=== PATIENT | female | born 1990 | race Caucasian/White ===

== ENCOUNTER → 2019-04-18 | Outpatient (CLI) | payer OTHER ==
--- NOTE | 2019-04-18 20:08 | ECHO ---
DATE OF PROCEDURE: 04/18/2019 REFERRING PHYSICIAN: Dr. Fredrick Riley INDICATION: Dyspnea on exertion, preoperative cardiovascular exam. Height 175 cm, weight 122 kg. DIMENSIONS: IVS: 1.0 LV: 4.5 LVPW: 1.1 LA: 4.1 Aorta: 3.0 IVC: 2.0 Mitral E wave velocity: 83 A wave: 40 E prime septal: 10.7 E prime lateral: 24 FINDINGS: The study is of fair technical quality corresponding to patient's body habitus. Left ventricle is of normal size and has normal systolic function, I estimate left ventricular ejection fraction (LVEF) 65-70%. Right ventricle was relatively poorly visualized but appears to have normal size and systolic function. Left atrium is mildly enlarged. Right atrium is probably normal size. Aortic valve is minimally sclerotic but has normal mobility, but this is based on poor views. Mitral, tricuspid valve appear normal. Pulmonic valve was not well seen. No pericardial effusion is noted. Inferior vena cava is on upper limits of normal size but collapses appropriately with respiration. Aortic root is normal. Aortic arch and abdominal aorta also appear normal. Doppler interrogation of aortic valve reveals no significant stenosis or insufficiency. There is also no significant mitral and tricuspid valvular disease. Trace pulmonic insufficiency is seen. Mitral inflow pattern and tissue Doppler imaging of mitral annulus revealed normal diastolic function. CONCLUSIONS: 1. Study is of fair technical quality. 2. Normal left ventricular (LV) size and systolic function, normal diastolic function. 3. No significant valvular disease. 4. Normal or mildly elevated central venous pressure. 5. Unable to estimate pulmonary artery pressure but no signs to suggest pulmonary hypertension. COMMENT: Subacute bacterial endocarditis (SBE) prophylaxis is not recommended.
== END ==
LOC: M CARPUL 08:38
DX: R06.09 Other forms of dyspnea (principal); Z01.810 Encounter for preprocedural cardiovascular examination

== ENCOUNTER → 2020-04-17 | Outpatient (CLI) | payer OTHER ==
[2020-04-17 12:45] LABS: HEMOGLOBIN 13.2 g/dl (12.0-15.5); MEAN CORPUSCULAR HEMOGLOBIN 28.9 pg (27.0-33.0); MEAN CORPUSCULAR VOLUME 87.5 fl (80.0-96.0); PLATELET COUNT, AUTOMATED 275 10^3/uL (150-450); RED BLOOD COUNT 4.57 10^6/uL (4.00-5.40); WHITE BLOOD COUNT 8.9 10^3/uL (4.0-10.0)
[2020-04-17 15:36] LABS: ALBUMIN 3.8 GM/DL (3.2-5.2); ALT/SGPT 22 U/L (12-78); BILIRUBIN,TOTAL 0.4 MG/DL (0.2-1.0); BLOOD UREA NITROGEN 8 MG/DL (7-18); CALCIUM LEVEL 9.2 MG/DL (8.5-10.1); CARBON DIOXIDE LEVEL 30 MEQ/L (21-32); CHLORIDE LEVEL 105 MEQ/L (98-107); CREATININE FOR GFR 0.82 MG/DL (0.55-1.30); FERRITIN 30 NG/ML (8-252); GLOMERULAR FILTRATION RATE > 60.0 (>60); GLUCOSE, FASTING 78 MG/DL (70-100); IRON (FE) 77 UG/DL (50-170); PERCENT SATURATION 24.8 % (13.2-45.0); POTASSIUM SERUM 3.9 MEQ/L (3.5-5.1); SODIUM LEVEL 139 MEQ/L (136-145); TOTAL IRON BINDING CAPACITY 310 UG/DL (250-450); TOTAL PROTEIN 6.7 GM/DL (6.4-8.2)
[2020-04-17 18:11] LABS: FOLATE 12.8 NG/ML; TOTAL 25(OH) VITAMIN D 25.1 NG/ML (30.0-100.0); VITAMIN B12 LEVEL 832 PG/ML
[2020-04-23 00:07] LABS: VITAMIN A, RETINOL LEVEL 40.9 ug/dL (18.9-57.3); VITAMIN B1 LEVEL WHOLE BLOOD 140.4 nmol/L (66.5-200.0)
== END ==
LOC: M WUC 09:08
DX: K90.89 Other intestinal malabsorption (principal); Z98.84 Bariatric surgery status; E55.9 Vitamin D deficiency, unspecified

== ENCOUNTER → 2020-04-17 | Outpatient (CLI) | payer OTHER ==
[2020-04-19 23:19] LABS: D001-IgE D pteronyssinus <0.10 kU/L (Class 0); E001-IgE Cat Epith/Dander < 0.10 kU/L (Class 0); E003-IGE HORSE EPITHELIA/DAND <0.10 kU/L (Class 0); E004-IGE COW DANDER <0.10 kU/L (Class 0); E005-IgE Dog Dander < 0.10 kU/L (Class 0); F002-IgE Milk < 0.10 kU/L (Class 0); F004-IgE Wheat < 0.10 kU/L (Class 0); F013-IgE Peanut < 0.10 kU/L (Class 0); F014-IgE Soybean < 0.10 kU/L (Class 0); F026-IgE Pork < 0.10 kU/L (Class 0); F027-IgE Beef < 0.10 kU/L (Class 0); F077-IGE LACTOGLOBULIN, BETA <0.10 kU/L (Class 0); F078-IGE CASEIN <0.10 kU/L (Class 0); F081-IGE CHEDDAR CHEESE <0.10 kU/L (Class 0); F082-IGE CHEESE MOLD <0.10 kU/L (Class 0); F245-IgE Egg, Whole < 0.10 kU/L (Class 0); FX02-IgE Food Mix (Sea Foods) Negative (.); G002-IgE Bermuda Grass < 0.10 kU/L (Class 0); G008-IgE Kentucky Bluegrass < 0.10 kU/L (Class 0); M001-IgE Penicillium chrysogen < 0.10 kU/L (Class 0); M002 IgE Cladosporium herbaru < 0.10 kU/L (Class 0); M003 IgE Aspergillus fumigatu < 0.10 kU/L (Class 0); M006-IgE Alternaria alternata < 0.10 kU/L (Class 0); T001-IgE Maple/Box Elder < 0.10 kU/L (Class 0); T003-IgE Common Silver Birch < 0.10 kU/L (Class 0); T006-IgE Cedar, Mountain < 0.10 kU/L (Class 0); T007-IgE Oak, White < 0.10 kU/L (Class 0); T008-IgE Elm, American < 0.10 kU/L (Class 0); T015-IgE Ash, White < 0.10 kU/L (Class 0); T041-IgE Hickory, White < 0.10 kU/L (Class 0); T070-IgE White Mulberry < 0.10 kU/L (Class 0); W001-IgE Ragweed, Short < 0.10 kU/L (Class 0); W009-IgE Plantain, English < 0.10 kU/L (Class 0); W014-IgE Pigweed, Rough < 0.10 kU/L (Class 0); W018-IgE Sheep Sorrel < 0.10 kU/L (Class 0)
[2020-04-20 12:07] LABS: F002-IGE MILK <0.10 kU/L (Class 0)
== END ==
LOC: M WUC 08:58
PROVIDERS: ATTEND Nurse Practitioner Family
DX: J30.2 Other seasonal allergic rhinitis (principal); H10.45 Other chronic allergic conjunctivitis; L29.9 Pruritus, unspecified; R05 Cough

== ENCOUNTER 2020-06-29 22:02 | Emergency (ER) | payer OTHER ==
[~2020-06-29] VITALS: Ht 175.3 cm; Wt 93.0 kg
[2020-06-29] MEDS ORDERED: PANT40TA29 PO (22:10)
[2020-06-29] MEDS ORDERED: CEFD1CAP8 PO (22:17)
[2020-06-30 00:48] LABS: BASO % 0.3 % (0.0-1.0); HEMATOCRIT 40.8 % (36.0-47.0); HEMOGLOBIN 13.5 g/dl (12.0-15.5); LYMPH # 1.2 10^3/uL (1.5-5.0); MEAN CORPUSCULAR HEMOGLOBIN 28.4 pg (27.0-33.0); MEAN CORPUSCULAR HGB CONC 33.1 g/dl (32.0-36.5); MEAN CORPUSCULAR VOLUME 85.9 fl (80.0-96.0); MONO # 0.8 10^3/uL (0.0-0.8); MONO % 7.2 % (0.0-5.0); NEUTROPHILS % 80.8 % (36.0-66.0); PLATELET COUNT, AUTOMATED 276 10^3/uL (150-450); RED BLOOD COUNT 4.75 10^6/uL (4.00-5.40); WHITE BLOOD COUNT 11.1 10^3/uL (4.0-10.0)
[2020-06-30] MEDS ORDERED: KETOROLAC 30 MG/ML 1ML VIAL IV ONE (01:00)
[2020-06-30] MEDS ORDERED: NS 1,000 ML IV ONE (01:00)
[2020-06-30 01:01] LABS: HCG, SERUM QUALITATIVE NEGATIVE (NEGATIVE)
[2020-06-30 01:17] LABS: ALBUMIN 3.9 GM/DL (3.2-5.2); ALT/SGPT 841 U/L (12-78); BILIRUBIN,DIRECT 1.1 MG/DL (0.0-0.2); BILIRUBIN,TOTAL 1.6 MG/DL (0.2-1.0); BLOOD UREA NITROGEN 12 MG/DL (7-18); CALCIUM LEVEL 8.9 MG/DL (8.5-10.1); CARBON DIOXIDE LEVEL 27 MEQ/L (21-32); CHLORIDE LEVEL 107 MEQ/L (98-107); CREATININE FOR GFR 0.71 MG/DL (0.55-1.30); GLOMERULAR FILTRATION RATE > 60.0 (>60); GLUCOSE, FASTING 111 MG/DL (70-100); LIPASE 219 U/L (73-393); POTASSIUM SERUM 3.8 MEQ/L (3.5-5.1); SODIUM LEVEL 140 MEQ/L (136-145); TOTAL PROTEIN 7.3 GM/DL (6.4-8.2)
--- NOTE | 2020-06-30 02:00 | REPVR ---
PROCEDURE INFORMATION: Exam: US Abdomen, Limited; Right Upper Quadrant Exam date and time: 06/30/2020 1:47 AM Age: 29 years old Clinical indication: Abdominal pain; Epigastric; Additional info: Biliary eval TECHNIQUE: Imaging protocol: US abdomen. Real time ultrasound with image documentation. Limited exam focused on the right upper quadrant. COMPARISON: No relevant prior studies available. FINDINGS: Liver: The liver demonstrates no focal defects. Gallbladder: The gallbladder demonstrates shadowing stones and sludge. There is no wall thickening measuring 3 mm and there is a negative sono Montelongo's sign. Common bile duct: The CBD measures 6 mm. Pancreas: The pancreas is normal. Right kidney: The right kidney is normal measuring 12.3 cm with no hydronephrosis. There is a small cyst measuring 9 x 9 x 12 mm. IMPRESSION: 1. Cholelithiasis with stones and sludge in the gallbladder. There is no wall thickening and there is a negative sono Montelongo's sign. 2. Otherwise negative right upper quadrant sonogram. Electronically signed by: Quang Peñaloza On 06/30/2020 02:00:32 AM
[2020-06-30] MEDS ORDERED: ISOVUE-370 76% 100ML VIAL As Ordered ONE (02:28)
--- NOTE | 2020-06-30 02:56 | REPVR ---
PROCEDURE INFORMATION: Exam: CT Abdomen And Pelvis With Contrast Exam date and time: 06/30/2020 2:30 AM Age: 29 years old Clinical indication: Abdominal pain; Localized; Right upper quadrant (ruq); Additional info: Biliary eval TECHNIQUE: Imaging protocol: Computed tomography of the abdomen and pelvis with intravenous contrast. Radiation optimization: All CT scans at this facility use at least one of these dose optimization techniques: automated exposure control; mA and/or kV adjustment per patient size (includes targeted exams where dose is matched to clinical indication); or iterative reconstruction. Contrast material: ISO; Contrast volume: 100 ml; Contrast route: INTRAVENOUS (IV); COMPARISON: US Abdomen 06/30/2020 1:47 AM FINDINGS: Lungs: Minimal dependent atelectasis. Liver: Normal. No mass. Gallbladder and bile ducts: Slight pericholecystic induration with pericholecystic fluid or wall edema. There is borderline distention of the gallbladder measuring 4.5 cm in diameter. Pancreas: Normal. No ductal dilation. Spleen: Normal. No splenomegaly. Adrenals: Normal. No mass. Kidneys and ureters: There is a right renal cyst measuring 10 mm consistent with simple or Bosniak 1 cyst. No follow-up imaging is recommended. Stomach and bowel: Status post gastric sleeve creation. Appendix: There are no changes of appendicitis. A normal appendix is not seen. Intraperitoneal space: Minimal free fluid in the cul-de-sac which is top normal for physiologic origin. Vasculature: Unremarkable. No abdominal aortic aneurysm. Lymph nodes: Unremarkable. No enlarged lymph nodes. Bladder: Unremarkable as visualized. Reproductive: Left ovarian functional cyst measuring 16 mm. Bones/joints: Unremarkable. No acute fracture. Soft tissues: Unremarkable. IMPRESSION: 1. Borderline distention of the gallbladder with pericholecystic fluid or wall edema and slight surrounding induration consistent with cholecystitis. 2. Status post gastric sleeve. 3. Minimal free fluid in the cul-de-sac which is top normal for physiologic origin and may be reactive and related to cholecystitis. COMMENTS: Consistent with the [employer]'s Incidental Findings Committee white paper (J Am Ru Radiol 2018): Any incidental renal lesion less than 1.0 cm or classified as too small to characterize, or any incidental cystic renal lesion characterized as simple-appearing, is likely benign. No follow-up imaging is recommended for these lesions per consensus recommendations based on imaging criteria. Electronically signed by: Quang Peñaloza On 06/30/2020 02:56:20 AM
[2020-06-30 08:51] LABS: ALBUMIN 3.3 GM/DL (3.2-5.2); BILIRUBIN,DIRECT 1.8 MG/DL (0.0-0.2); BILIRUBIN,TOTAL 2.3 MG/DL (0.2-1.0); TOTAL PROTEIN 6.2 GM/DL (6.4-8.2)
[2020-06-30] MEDS ORDERED: NS 1,000 ML IV SCH (10:15)
[2020-06-30] MEDS ORDERED: PIPERACILLIN/TAZOBACTAM SOD 3.375 GM in D5W MINI-BAG PLUS 50 ML IV ONE (10:15)
[2020-06-30 11:51] VITALS: BP 117/73
[2020-06-30] MEDS ORDERED: ONDANSETRON 4MG/2ML VIAL IV ONE (12:00)
[2020-06-30] MEDS ORDERED: MORPHINE 4 MG/ML 1ML VIAL/SYRINGE (J2270) IV ONE (12:00)
[2020-06-30] MEDS ORDERED: MORPHINE 4 MG/ML 1ML VIAL/SYRINGE (J2270) As Ordered ONE (12:01)
[2020-06-30] MEDS ORDERED: ONDANSETRON 4MG/2ML VIAL As Ordered ONE (12:02)
== END 2020-06-30 12:10 | disposition short-term general hospital (02) ==
LOC: M ED 22:02
DX: K80.42 Calculus of bile duct with acute cholecystitis without obstruction (principal); N28.1 Cyst of kidney, acquired; K21.9 Gastro-esophageal reflux disease without esophagitis; M32.9 Systemic lupus erythematosus, unspecified; Z98.84 Bariatric surgery status
CPT/HCPCS: 74177; 76705; 80048; 80076; 81001; 83690; 84703; 85025; 87086; 96361; 96365; 96375; 99284; J1885; J2270; J2405; J2543; Q9967

== ENCOUNTER → 2020-07-21 | Outpatient (CLI) | payer OTHER ==
[~2020-07-21] MED LIST: CEFD1CAP8 PO; PANT40TA29 PO
[2020-07-21 15:37] LABS: ALBUMIN 3.8 GM/DL (3.2-5.2); ALT/SGPT 35 U/L (12-78); BILIRUBIN,TOTAL 0.5 MG/DL (0.2-1.0); BLOOD UREA NITROGEN 13 MG/DL (7-18); CALCIUM LEVEL 9.5 MG/DL (8.5-10.1); CARBON DIOXIDE LEVEL 31 MEQ/L (21-32); CHLORIDE LEVEL 106 MEQ/L (98-107); CREATININE FOR GFR 0.68 MG/DL (0.55-1.30); FERRITIN 58 NG/ML (8-252); GLOMERULAR FILTRATION RATE > 60.0 (>60); GLUCOSE, FASTING 79 MG/DL (70-100); HEMATOCRIT 41.6 % (36.0-47.0); HEMOGLOBIN 13.2 g/dl (12.0-15.5); IRON (FE) 100 UG/DL (50-170); MAGNESIUM LEVEL 2.1 MG/DL (1.8-2.4); MEAN CORPUSCULAR HEMOGLOBIN 28.2 pg (27.0-33.0); MEAN CORPUSCULAR HGB CONC 31.7 g/dl (32.0-36.5); MEAN CORPUSCULAR VOLUME 88.9 fl (80.0-96.0); PERCENT SATURATION 31.3 % (13.2-45.0); PLATELET COUNT, AUTOMATED 326 10^3/uL (150-450); POTASSIUM SERUM 3.8 MEQ/L (3.5-5.1); RED BLOOD COUNT 4.68 10^6/uL (4.00-5.40); SODIUM LEVEL 139 MEQ/L (136-145); TOTAL IRON BINDING CAPACITY 320 UG/DL (250-450); TOTAL PROTEIN 7.1 GM/DL (6.4-8.2); WHITE BLOOD COUNT 9.1 10^3/uL (4.0-10.0)
[2020-07-23 10:23] LABS: TOTAL 25(OH) VITAMIN D 25.2 NG/ML (30.0-100.0); VITAMIN B12 LEVEL 542 PG/ML (247-911)
[2020-07-28 23:07] LABS: VITAMIN A, RETINOL LEVEL 49.6 ug/dL (18.9-57.3); VITAMIN B1 LEVEL WHOLE BLOOD 116.3 nmol/L (66.5-200.0)
== END ==
LOC: M WUC 08:21
PROVIDERS: ATTEND Physician Assistant
DX: K90.89 Other intestinal malabsorption (principal); E55.9 Vitamin D deficiency, unspecified; Z98.84 Bariatric surgery status